=== PATIENT | female | born 1990 | race African-American/Black ===

== ENCOUNTER 2020-08-31 01:35 | Emergency (ER) | payer SELFPAY ==
[~2020-08-31] VITALS: Ht 172.7 cm; Wt 63.5 kg
== END 2020-08-31 01:50 | disposition home or self-care (01) ==
LOC: ER 01:38
DX: S00.86XA Insect bite (nonvenomous) of other part of head, initial encounter (principal); S40.262A Insect bite (nonvenomous) of left shoulder, initial encounter; S40.261A Insect bite (nonvenomous) of right shoulder, initial encounter; S80.862A Insect bite (nonvenomous), left lower leg, initial encounter; S80.861A Insect bite (nonvenomous), right lower leg, initial encounter
CPT/HCPCS: 99282